=== PATIENT | male | born 1990 | race Caucasian/White ===

== ENCOUNTER 2024-10-17 18:15 | Emergency (ER) | payer BC ==
[~2024-10-17] VITALS: Ht 162.6 cm; Wt 63.5 kg
[2024-10-17 18:19] VITALS: O2SAT 98
[2024-10-17] MEDS: ONDANSETRON HCL 4MG/2ML INJ IV STA (20:38)
[2024-10-17] MEDS: LORAZEPAM 2MG/ML INJ IV ONE (20:38)
[2024-10-17] MEDS: SODIUM CHLORIDE 0.9% 1,000 ML IV ONE (20:38)
[2024-10-17 20:51] LABS: CHLORIDE 103 mEq/L (98-107); POTASSIUM 4.6 mEq/L (3.5-5.1); SODIUM 141 mEq/L (136-145)
[2024-10-17 20:52] LABS: CARBON DIOXIDE 26 mEq/L (21-32)
[2024-10-17 20:53] LABS: HEMATOCRIT. 47.7 % (42.0-52.0); HEMOGLOBIN. 16.6 g/dL (14.0-18.0); MEAN CORPUSCULAR HEMOGLOBIN 30.6 pg (28.0-32.0); MEAN CORPUSCULAR HGB CONC 34.8 g/dL (31.0-37.0); MEAN PLATELET VOLUME 8.5 fl (7.4-10.4); PLATELET 285 x1000/uL (130-400); RED BLOOD CELL COUNT 5.42 mill/uL (4.7-6.1); WHITE BLOOD COUNT 17.8 x1000/uL (4.5-11.0)
[2024-10-17 20:54] LABS: DIFFERENTIAL COMMENT 1
[2024-10-17 20:57] LABS: CREATININE 0.9 mg/dL (0.6-1.3); GLUCOSE 124 mg/dL (70-105); UREA NITROGEN BLOOD 15 mg/dL (9-23)
[2024-10-17 20:58] LABS: ETHANOL BLOOD < 10 mg/dL (<10)
[2024-10-17 21:05] LABS: PLATELET ESTIMATE NORMAL
[2024-10-17 21:51] VITALS: BP 118/63; PULSE 83; RESP 18; TEMP 36.8; O2SAT 98
== END 2024-10-17 21:52 | disposition home or self-care (01) ==
LOC: ER 18:15
DX: F10.939 Alcohol use, unspecified with withdrawal, unspecified (principal); Y90.0 Blood alcohol level of less than 20 mg/100 ml
CPT/HCPCS: 80048; 80320; 83690; 85025; 36415; 96374; 96375; 99284; J2060; J2405; J7030; Z7610; G0480